=== PATIENT | female | born 1955 | race Caucasian/White ===

== ENCOUNTER 2017-01-23 22:10 | Emergency (ER) | payer OTHER ==
[~2017-01-23] VITALS: Ht 167.6 cm; Wt 49.6 kg
[2017-01-23 22:17] VITALS: BP 170/72; PULSE 85; RESP 16; TEMP 97.5; O2SAT 99
[2017-01-23] MEDS ORDERED: ASPIRIN 81 MG CHEW TAB PO ONE (22:45)
[2017-01-23] MEDS ORDERED: SODIUM CHLORIDE 0.9% FLUSH 10 ML FLUSH IVF PRN (22:45)
--- NOTE | 2017-01-23 23:15 | RADRPT ---
EXAM DATE/TIME: 01/23/2017 22:59 [facility] COMPARISON: No previous studies available for comparison. INDICATIONS : Chest pain. MEDICAL HISTORY : None. SURGICAL HISTORY : None. ENCOUNTER: Initial ACUITY: 1 day PAIN SCORE: 3/10 LOCATION: Bilateral chest FINDINGS: A single view of the chest demonstrates the lungs to be symmetrically aerated without evidence of mas s, infiltrate or effusion. The cardiomediastinal contours are unremarkable. Osseous structures are intact. CONCLUSION: No acute disease. Velasquez Madsen MD on January 23, 2017 at 23:13 Board Certified Radiologist. This report was verified electronically.
[2017-01-23] MEDS ORDERED: LATA0.002 EACH EYE (23:22)
[2017-01-23 23:35] VITALS: RESP 18; O2SAT 99
--- NOTE | 2017-01-23 23:41 | PD ---
HPI Chief Complaint: Hypertension Time Seen by Provider: 22:40 Travel History International Travel<30 days: No Contact w/Intl Traveler<30days: No Traveled to known affect area: No History of Present Illness HPI 62-year-old female with history of MTHFR gene mutation, glaucoma, here for evaluation of elevated blood pressure, tachycardia, lightheadedness, feeling slightly anxious after taking her vitamins today. Patient reports having felt slight pressure in her chest during this episode as well. Currently she is chest pain-free. She denies fevers or recent illness. She does feel a fullness in her anterior neck and believe she may have an issue with her thyroid. PFSH Past Medical History Diminished Hearing: No Tetanus Vaccination: Unknown Influenza Vaccination: No Menopausal: Yes Past Surgical History Genitourinary Surgery: Yes (POLYP REMOVED ON BLADDER) Other Surgery: Yes (LUNG, THORACIC NERVE COMPRESSION SURGERY) Social History Alcohol Use: No Tobacco Use: No Substance Use: No Allergies-Medications (Allergen,Severity, Reaction): Coded Allergies: Iodinated Contrast- Oral and IV Dye (Verified Allergy, Severe, 01/23/17) cephalexin (Verified Allergy, Severe, Hives, 01/23/17) Reported Meds & Prescriptions Reported Meds & Active Scripts Active Reported Latanoprost Opth Drops (Latanoprost) 0.005% Drops 1 Drop EACH EYE HS Refrigerate until opened. Review of Systems Except as stated in HPI: all other systems reviewed are Neg Physical Exam Narrative GENERAL: Well-developed, thin, awake, alert, comfortable, no apparent distress. SKIN: Focused skin assessment warm/dry. No rash. HEAD: Atraumatic. Normocephalic. EYES: Pupils equal and round. No scleral icterus. No injection or drainage. ENT: No nasal bleeding or discharge. Mucous membranes pink and moist. NECK: Trachea midline. No JVD. Slight fullness/possibly enlarged thyroid without palpable nodules. CARDIOVASCULAR: Regular rate and rhythm. RESPIRATORY: No accessory muscle use. Clear to auscultation. Breath sounds equal bilaterally. GASTROINTESTINAL: Abdomen soft, non-tender, nondistended. MUSCULOSKELETAL: No obvious deformities. No clubbing. No cyanosis. No edema. NEUROLOGICAL: Awake and alert. No obvious cranial nerve deficits. Motor grossly within normal limits. Normal speech. PSYCHIATRIC: Appropriate mood and affect; insight and judgment normal. Data Data Last Documented VS Vital Signs Date Time Temp Pulse Resp B/P (MAP) Pulse Ox O2 Delivery O2 Flow Rate FiO2 01/24/17 02:13 86 18 117/60 (79) 99 Room Air 01/23/17:17 97.5 Orders Orders Electrocardiogram (01/23/17 22:45) Ckmb (Isoenzyme) Profile (01/23/17 22:45) Complete Blood Count With Diff (01/23/17 22:45) Comprehensive Metabolic Panel (01/23/17 22:45) Magnesium (Mg) (01/23/17 22:45) Prothrombin Time / Inr (Pt) (01/23/17 22:45) Act Partial Throm Time (Ptt) (01/23/17 22:45) Troponin I (01/23/17 22:45) Chest, Single Ap (01/23/17 22:45) Ecg Monitoring (01/23/17 22:45) Iv Access Insert/Monitor (01/23/17 22:45) Oximetry (01/23/17 22:45) Aspirin Chew (Aspirin Chew) (01/23/17 22:45) Sodium Chloride 0.9% Flush (Ns Flush) (01/23/17 22:45) Thyroid Stimulating Hormone (01/23/17 22:45) Ct Abd/Pel W/O Iv Contrast (01/24/17 00:51) Troponin I (01/24/17 02:03) Labs Laboratory Tests Test 01/23/17 23:30 01/24/17 02:00 White Blood Count 4.5 TH/MM3 Red Blood Count 4.69 MIL/MM3 Hemoglobin 13.7 GM/DL Hematocrit 41.4 % Mean Corpuscular Volume 88.2 FL Mean Corpuscular Hemoglobin 29.1 PG Mean Corpuscular Hemoglobin Concent 33.0 % Red Cell Distribution Width 12.5 % Platelet Count 194 TH/MM3 Mean Platelet Volume 8.7 FL Neutrophils (%) (Auto) 56.9 % Lymphocytes (%) (Auto) 32.2 % Monocytes (%) (Auto) 7.7 % Eosinophils (%) (Auto) 2.1 % Basophils (%) (Auto) 1.1 % Neutrophils # (Auto) 2.6 TH/MM3 Lymphocytes # (Auto) 1.5 TH/MM3 Monocytes # (Auto) 0.3 TH/MM3 Eosinophils # (Auto) 0.1 TH/MM3 Basophils # (Auto) 0.0 TH/MM3 CBC Comment DIFF FINAL Differential Comment Prothrombin Time 10.4 SEC Prothromb Time International Ratio 0.9 RATIO Activated Partial Thromboplast Time 27.1 SEC Blood Urea Nitrogen 14 MG/DL Creatinine 0.54 MG/DL Random Glucose 108 MG/DL Total Protein 7.5 GM/DL Albumin 4.1 GM/DL Calcium Level 9.2 MG/DL Magnesium Level 2.4 MG/DL Alkaline Phosphatase 142 U/L Aspartate Amino Transf (AST/SGOT) 19 U/L Alanine Aminotransferase (ALT/SGPT) 26 U/L Total Bilirubin 1.0 MG/DL Sodium Level 137 MEQ/L Potassium Level 3.7 MEQ/L Chloride Level 102 MEQ/L Carbon Dioxide Level 30.0 MEQ/L Anion Gap 5 MEQ/L Estimat Glomerular Filtration Rate 114 ML/MIN Total Creatine Kinase 56 U/L Troponin I LESS THAN 0.02 NG/ML LESS THAN 0.02 NG/ML Thyroid Stimulating Hormone 3rd Gen 6.350 uIU/ML MDM Medical Decision Making Medical Screen Exam Complete: Yes Emergency Medical Condition: Yes Interpretation(s) EKG: Sinus, rate 81, leftward axis, incomplete RBBB, no acute ischemic abnormality. Differential Diagnosis ACS, pneumothorax, peritonitis, PE, pneumonia, anemia, metabolic abnormality, hyperthyroidism, anxiety Narrative Course Initial vital signs show heart rate 85, blood pressure 170/72, pulse ox 99% on room air, oral temp of 97.5F. Repeat blood pressure is 139/64. CBC is unremarkable. CMP is unremarkable. Cardiac enzymes are negative. TSH is 6.35. Chest x-ray shows no acute disease. The patient was given a dose of aspirin. On reassessment she is complaining of some epigastric discomfort. She is concerned about a possible aneurysm and was told that she had a bruit in the past. She does have tenderness in the epigastric and umbilical region. I will order a CT of her abdomen and pelvis. She tells me that the discomfort she was having in her chest earlier was more like palpitations and this occurs frequently, more frequently over the past month. Delta troponin will be performed. CT abdomen pelvis: CONCLUSION: 1. Several punctate nonobstructing right-sided renal calculi. 2. Gaseous distention of multiple bowel loops without obstruction. 3. Mild distention of the urinary bladder. 4. Minimal loss of height along the superior endplate of L3 and L4. Repeat troponin 3 hours after the first is also negative. Patient was made aware of all findings and is resting comfortably. I do not believe her symptoms are from acute coronary syndrome. She describes more palpitations, and I believe this is more likely due to anxiety. At this point I believe she is stable for discharge home with further workup as an outpatient. She was informed on when to return to the emergency department. She verbalizes understanding and agreement with plan. Diagnosis Primary Impression: Elevated blood pressure reading Additional Impression: Palpitations Referrals: Primary Care Physician 3 days Additional Instructions: Follow-up with a primary care physician this week. Return to the emergency department for worsening symptoms or any other concerns. Disposition: 01 DISCHARGE HOME Condition: Stable Julian Valerio MD Jan 23, 2017 23:41
[2017-01-23 23:47] LABS: AUTOMATED NEUTROPHIL # 2.6 TH/MM3 (1.8-7.7); BASOPHIL % 1.1 % (0.0-2.0); EOSINOPHIL # 0.1 TH/MM3 (0-0.4); EOSINOPHIL % 2.1 % (0.0-4.0); HEMATOCRIT 41.4 % (35.0-46.0); HEMOGLOBIN 13.7 GM/DL (11.6-15.3); LYMPH % 32.2 % (9.0-44.0); LYMPHOCYTE # 1.5 TH/MM3 (1.0-4.8); MEAN CELL VOLUME 88.2 FL (80.0-100.0); MEAN CORPUSCULAR HEMOGLOBIN 29.1 PG (27.0-34.0); MEAN PLATELET VOLUME 8.7 FL (7.0-11.0); MONO % 7.7 % (0.0-8.0); MONOCYTE # 0.3 TH/MM3 (0-0.9); NEUT % 56.9 % (16.0-70.0); PLATELET COUNT 194 TH/MM3 (150-450); RED BLOOD COUNT 4.69 MIL/MM3 (4.00-5.30); RED CELL DISTRIBUTION WIDTH 12.5 % (11.6-17.2); WHITE BLOOD COUNT 4.5 TH/MM3 (4.0-11.0)
[2017-01-23 23:57] VITALS: BP 139/64; PULSE 88; RESP 18; O2SAT 99
[2017-01-24 00:11] LABS: CHLORIDE 102 MEQ/L (98-107); SODIUM (NA) 137 MEQ/L (136-145)
[2017-01-24 00:15] LABS: ALBUMIN 4.1 GM/DL (3.4-5.0); BLOOD UREA NITROGEN 14 MG/DL (7-18); CALCIUM 9.2 MG/DL (8.5-10.1); GLUCOSE,RANDOM 108 MG/DL (74-106); MAGNESIUM 2.4 MG/DL (1.5-2.5)
[2017-01-24 00:17] LABS: INTERNATIONAL NORMALIZED RATIO 0.9 RATIO; PROTHROMBIN TIME - PATIENT 10.4 SEC (9.8-11.6)
[2017-01-24 00:18] LABS: ALT (GPT) 26 U/L (10-53); AST (GOT) 19 U/L (15-37)
[2017-01-24 00:19] LABS: CREATININE 0.54 MG/DL (0.50-1.00); GLOMERULAR FILTRATION RATE 114 ML/MIN (>89)
[2017-01-24 00:20] LABS: TOTAL PROTEIN 7.5 GM/DL (6.4-8.2)
[2017-01-24 00:21] LABS: ALKALINE PHOSPHATASE 142 U/L (45-117)
[2017-01-24 00:24] LABS: TROPONIN I LESS THAN 0.02 NG/ML (0.02-0.05)
--- NOTE | 2017-01-24 01:19 | RADRPT ---
EXAM DATE/TIME: 01/24/2017 00:57 [facility] COMPARISON: No previous studies available for comparison. INDICATIONS : Epigastric pain. Hypertension. ORAL CONTRAST: No oral contrast ingested. RADIATION DOSE: 4.8 CTDIvol (mGy) MEDICAL HISTORY : None SURGICAL HISTORY : None. ENCOUNTER: Initial ACUITY: 1 day PAIN SCALE: 4/10 LOCATION: upper quadrant midline TECHNIQUE: Volumetric scanning of the abdomen and pelvis was performed. Using automated exposure control and ad justment of the mA and/or kV according to patient size, radiation dose was kept as low as reasonably achievable to obtain optimal diagnostic quality images. DICOM format image data is available electro nically for review and comparison. FINDINGS: LOWER LUNGS: The visualized lower lungs are clear. LIVER: Homogeneous density without lesion. There is no dilation of the biliary tree. No calcified gallston es. SPLEEN: Normal size without lesion. PANCREAS: Within normal limits. KIDNEYS: Normal in size and shape. There is no mass, stone, or hydronephrosis on the left. Several punctate n onobstructing right-sided renal calculi measuring 2-3 mm. ADRENAL GLANDS: Within normal limits. VASCULAR: There is no aortic aneurysm. BOWEL/MESENTERY: The stomach, small bowel, and colon demonstrate no acute abnormality. There is no free intraperitone al air or fluid. ABDOMINAL WALL: Within normal limits. RETROPERITONEUM: There is no lymphadenopathy. BLADDER: Mildly distended. No wall thickening or mass. REPRODUCTIVE: Within normal limits. INGUINAL: There is no lymphadenopathy or hernia. MUSCULOSKELETAL: Minimal loss of height along the superior endplate of L3 and L4. CONCLUSION: 1. Several punctate nonobstructing right-sided renal calculi. 2. Gaseous distention of multiple bowel loops without obstruction. 3. Mild distention of the urinary bladder. 4. Minimal loss of height along the superior endplate of L3 and L4. Velasquez Madsen MD on January 24, 2017 at 1:15 Board Certified Radiologist. This report was verified electronically.
[2017-01-24 02:13] VITALS: BP 117/60; PULSE 86; RESP 18; O2SAT 99
[2017-01-24 03:18] VITALS: BP 121/60
--- NOTE | 2017-01-24 14:56 | EKG ---
Date Performed: 01/23/2017 Time Performed: 22:55:45 PTAGE: 62 years EKG: Sinus rhythm POSSIBLE LEFT ATRIAL ENLARGEMENT BORDERLINE LEFT AXIS DEVIATION INCOMPLETE RIGHT BUNDLE BRANCH BLOCK BORDERLINE ECG NO PREVIOUS TRACING DOCTOR: Daniel Rangel Interpretating Date/Time 01/24/2017 14:53:41
[2017-02-05] MEDS ORDERED: ASPI81CH37 CHEW (16:42)
== END 2017-01-24 03:20 | disposition home or self-care (01) ==
LOC: PHED 22:10
DX: R03.0 Elevated blood-pressure reading, without diagnosis of hypertension (principal); R00.2 Palpitations; R42 Dizziness and giddiness; R07.89 Other chest pain; F41.9 Anxiety disorder, unspecified; R94.31 Abnormal electrocardiogram [ECG] [EKG]; Z79.899 Other long term (current) drug therapy
CPT/HCPCS: 71010; 74176; 80053; 82550; 83735; 84443; 84484; 85025; 85610; 85730; 93005

== ENCOUNTER 2017-02-05 16:26 | Observation (INO) | payer OTHER ==
[~2017-02-05] VITALS: Ht 170.2 cm; Wt 49.8 kg
[~2017-02-05 16:26] MED LIST: LATA0.002 EACH EYE
[2017-02-05 16:32] VITALS: BP 152/81; PULSE 109; RESP 18; TEMP 97.9; O2SAT 99
[2017-02-05] MEDS ORDERED: ASPI81CH6 CHEW (16:42)
[2017-02-05] MEDS ORDERED: MAGN250T11 PO (16:42)
[2017-02-05 16:55] VITALS: BP 121/63; PULSE 92; O2SAT 98
--- NOTE | 2017-02-05 16:57 | PD ---
HPI Chief Complaint: Chest Pain Time Seen by Provider: 16:40 Travel History International Travel<30 days: No Contact w/Intl Traveler<30days: No Traveled to known affect area: No History of Present Illness HPI The patient was seen and examined in the presence of the nurse. This patient complains of chest pain. He has a central sternal pain and pressure. It feels like a rubber band around her entire chest. Also having it radiates through to the back. No injury. Denies cough or shortness of breath or fever. She says it is worse when she takes of breath. Duration is 4-5 hours. Severity is moderate. No alleviating factors. Symptoms are nonexertional. No history of cardiac or pulmonary disease. Never had blood clot. PFSH Past Medical History Diminished Hearing: No Thyroid Disease: Yes Influenza Vaccination: No ?: Not Menopausal: Yes Past Surgical History Genitourinary Surgery: Yes (POLYP REMOVED ON BLADDER) Other Surgery: Yes (LUNG, THORACIC NERVE COMPRESSION SURGERY) Social History Alcohol Use: No Tobacco Use: No Substance Use: No Allergies-Medications (Allergen,Severity, Reaction): Coded Allergies: Iodinated Contrast- Oral and IV Dye (Verified Allergy, Severe, 02/05/17) cephalexin (Verified Allergy, Severe, Hives, 02/05/17) Reported Meds & Prescriptions Reported Meds & Active Scripts Active Reported Aspirin Low Dose (Aspirin) 81 Mg Chew 325 Mg CHEW DAILY Magnesium Oxide 250 Mg Tab 250 Mg PO DAILY Latanoprost Opth Drops (Latanoprost) 0.005% Drops 1 Drop EACH EYE HS Refrigerate until opened. Review of Systems General / Constitutional: No: Fever Eyes: No: Visual changes HENT: No: Headaches Cardiovascular: Positive: Chest Pain or Discomfort Respiratory: No: Shortness of Breath Gastrointestinal: No: Abdominal Pain Genitourinary: No: Dysuria Musculoskeletal: No: Pain Skin: No Rash Neurologic: No: Weakness Psychiatric: No: Depression Endocrine: No: Polydipsia Hematologic/Lymphatic: No: Easy Bruising Physical Exam Narrative GENERAL: Thin well-developed patient in no apparent distress. SKIN: Focused skin assessment reveals no rash and nodules. Skin is Warm and dry. HEAD: Atraumatic. Normocephalic. EYES: Pupils equal and round. No scleral icterus. No injection or drainage. ENT: No nasal bleeding or discharge. Mucous membranes pink and moist. NECK: Trachea midline. No JVD. CARDIOVASCULAR: Regular rate and rhythm. No murmur appreciated. RESPIRATORY: No accessory muscle use. Clear to auscultation. Breath sounds equal bilaterally. GASTROINTESTINAL: Abdomen soft, non-tender, nondistended. Hepatic and splenic margins not palpable. MUSCULOSKELETAL: No obvious deformities. No clubbing. No cyanosis. No edema. No sternal tenderness NEUROLOGICAL: Awake and alert. No obvious cranial nerve deficits. Motor grossly within normal limits. Normal speech. PSYCHIATRIC: Anxious mood and affect; insight and judgment normal. Data Data Last Documented VS Vital Signs Date Time Temp Pulse Resp B/P (MAP) Pulse Ox O2 Delivery O2 Flow Rate FiO2 02/05/17 16:55 92 121/63 (82) 98 Room Air 02/05/17 16:32 97.9 18 Orders Orders Electrocardiogram (02/05/17 16:48) Basic Metabolic Panel (Bmp) (02/05/17 16:48) Ckmb (Isoenzyme) Profile (02/05/17 16:48) Complete Blood Count With Diff (02/05/17 16:48) Magnesium (Mg) (02/05/17 16:48) Prothrombin Time / Inr (Pt) (02/05/17 16:48) Act Partial Throm Time (Ptt) (02/05/17 16:48) Troponin I (02/05/17 16:48) Chest, Single Ap (02/05/17 16:48) Ecg Monitoring (02/05/17 16:48) Iv Access Insert/Monitor (02/05/17 16:48) Oximetry (02/05/17 16:48) Aspirin (Aspirin) (02/05/17 17:00) Sodium Chloride 0.9% Flush (Ns Flush) (02/05/17 17:00) D-Dimer (02/05/17 16:48) Labs Laboratory Tests Test 02/05/17 16:44 White Blood Count 7.9 TH/MM3 Red Blood Count 4.97 MIL/MM3 Hemoglobin 14.7 GM/DL Hematocrit 43.0 % Mean Corpuscular Volume 86.4 FL Mean Corpuscular Hemoglobin 29.5 PG Mean Corpuscular Hemoglobin Concent 34.2 % Red Cell Distribution Width 12.1 % Platelet Count 246 TH/MM3 Mean Platelet Volume 9.0 FL Neutrophils (%) (Auto) 79.2 % Lymphocytes (%) (Auto) 15.0 % Monocytes (%) (Auto) 3.8 % Eosinophils (%) (Auto) 0.4 % Basophils (%) (Auto) 1.6 % Neutrophils # (Auto) 6.3 TH/MM3 Lymphocytes # (Auto) 1.2 TH/MM3 Monocytes # (Auto) 0.3 TH/MM3 Eosinophils # (Auto) 0.0 TH/MM3 Basophils # (Auto) 0.1 TH/MM3 CBC Comment DIFF FINAL Differential Comment Prothrombin Time 10.5 SEC Prothromb Time International Ratio 1.0 RATIO Activated Partial Thromboplast Time 26.4 SEC D-Dimer Quantitative (PE/DVT) 0.26 MG/L FEU Blood Urea Nitrogen 15 MG/DL Creatinine 0.58 MG/DL Random Glucose 143 MG/DL Calcium Level 9.1 MG/DL Magnesium Level 2.3 MG/DL Sodium Level 135 MEQ/L Potassium Level 3.7 MEQ/L Chloride Level 101 MEQ/L Carbon Dioxide Level 27.4 MEQ/L Anion Gap 7 MEQ/L Estimat Glomerular Filtration Rate 105 ML/MIN Total Creatine Kinase 75 U/L Troponin I LESS THAN 0.02 NG/ML MDM Medical Decision Making Medical Screen Exam Complete: Yes Emergency Medical Condition: Yes Medical Record Reviewed: Yes Differential Diagnosis Differential diagnosis includes LA, angina, pericarditis, pleurisy, GERD, anxiety. Narrative Course I have reviewed the patient's electronic medical record. IV placed I reviewed the EKG which shows sinus rhythm but no acute ST elevation I reviewed the chest x-ray which is normal Extended cardiac monitoring shows sinus rhythm without ectopy CBC is normal Metabolic profile is normal CK is normal Troponin is normal Coagulation studies are normal She took 4 baby aspirin prior to arrival D-dimer is 0.26, ruling out PE in this low risk patient This patient be a 23 hour observation in the chest pain center to rule out cardiac cause of her symptoms. I placed a call to the hospitalist to discuss. Diagnosis Primary Impression: Chest pain in adult Admitting Information Admitting Physician Requests: Observation Jeff Peguero MD Feb 05, 2017 16:57
[2017-02-05] MEDS ORDERED: ASPIRIN 325 MG TAB PO ONE (17:00)
[2017-02-05] MEDS ORDERED: SODIUM CHLORIDE 0.9% FLUSH 10 ML FLUSH IVF PRN (17:00)
[2017-02-05 17:05] LABS: AUTOMATED NEUTROPHIL # 6.3 TH/MM3 (1.8-7.7); BASOPHIL # 0.1 TH/MM3 (0-0.2); BASOPHIL % 1.6 % (0.0-2.0); EOSINOPHIL % 0.4 % (0.0-4.0); LYMPHOCYTE # 1.2 TH/MM3 (1.0-4.8); MEAN CELL VOLUME 86.4 FL (80.0-100.0); MEAN CORPUSCULAR HEMOGLOBIN 29.5 PG (27.0-34.0); MEAN CORPUSCULAR HGB CONC 34.2 % (32.0-36.0); MONO % 3.8 % (0.0-8.0); NEUT % 79.2 % (16.0-70.0); PLATELET COUNT 246 TH/MM3 (150-450); RED BLOOD COUNT 4.97 MIL/MM3 (4.00-5.30); RED CELL DISTRIBUTION WIDTH 12.1 % (11.6-17.2); WHITE BLOOD COUNT 7.9 TH/MM3 (4.0-11.0)
[2017-02-05 17:08] LABS: HEMO FLAGS DIFF FINAL
[2017-02-05 17:09] LABS: CHLORIDE 101 MEQ/L (98-107); POTASSIUM 3.7 MEQ/L (3.5-5.1); SODIUM (NA) 135 MEQ/L (136-145)
[2017-02-05 17:12] LABS: ANION GAP 7 MEQ/L (5-15); BICARBONATE 27.4 MEQ/L (21.0-32.0); BLOOD UREA NITROGEN 15 MG/DL (7-18); MAGNESIUM 2.3 MG/DL (1.5-2.5)
[2017-02-05 17:15] LABS: GLOMERULAR FILTRATION RATE 105 ML/MIN (>89)
--- NOTE | 2017-02-05 17:15 | RADRPT ---
EXAM DATE/TIME: 02/05/2017 17:02 [facility] COMPARISON: CHEST SINGLE AP, January 23, 2017, 22:59. INDICATIONS : Chest pain MEDICAL HISTORY : None. SURGICAL HISTORY : Spinal ENCOUNTER: Initial ACUITY: 1 day PAIN SCORE: 8/10 LOCATION: Bilateral chest FINDINGS: Hyperinflation. Heart size normal. Lungs are clear. Osseous structures are intact. CONCLUSION: No acute disease. Laz Macias MD on February 05, 2017 at 17:12 Board Certified Radiologist. This report was verified electronically.
[2017-02-05 17:20] LABS: APTT (PATIENT) 26.4 SEC (24.3-30.1); CREATINE KINASE 75 U/L (26-192); PROTHROMBIN TIME - PATIENT 10.5 SEC (9.8-11.6)
[2017-02-05 18:14] VITALS: BP 150/65; PULSE 75; RESP 18; O2SAT 98
[2017-02-05] MEDS ORDERED: NITROGLYCERIN 0.4 MG SL 25 TABS/BTL SL PRN (18:45)
[2017-02-05] MEDS ORDERED: ACETAMINOPHEN 500 MG CPLT PO PRN (18:45)
[2017-02-05] MEDS ORDERED: ONDANSETRON HCL 4 MG/2 ML VIAL IV PUSH PRN (18:45)
[2017-02-05] MEDS ORDERED: SODIUM CHLORIDE 0.9% FLUSH 10 ML FLUSH IV FLUSH PRN (18:45)
[2017-02-05] MEDS ORDERED: ACETAMINOPHEN/HYDROcodone 325 MG/7.5 MG TAB PO PRN (18:45)
[2017-02-05] MEDS ORDERED: MORPHINE SULFATE 2 MG/ML INJ IV PUSH PRN (19:15)
[2017-02-05 20:00] VITALS: PULSE 85
[2017-02-05] MEDS: SODIUM CHLORIDE 0.9% FLUSH 10 ML FLUSH IV FLUSH SCH (21:00)
[2017-02-05] MEDS ORDERED: LATANOPROST 0.005% OPHT SOLN 2.5 ML BTL EACH EYE SCH (21:00)
--- NOTE | 2017-02-05 21:08 | EKG ---
Date Performed: 02/05/2017 Time Performed: 20:16:50 PTAGE: 62 years EKG: Sinus rhythm BORDERLINE LEFT AXIS DEVIATION INCOMPLETE RIGHT BUNDLE BRANCH BLOCK BORDERLINE ECG PREVIOUS TRACING : 01/23/2017 22.55 No significant change from previous tracing noted. DOCTOR: Jesse Ayala Interpretating Date/Time 02/05/2017 21:06:05
--- NOTE | 2017-02-05 21:10 | EKG ---
Date Performed: 02/05/2017 Time Performed: 16:37:08 PTAGE: 62 years EKG: SINUS TACHYCARDIA WITH SHORT NV INTERVAL LEFT AXIS DEVIATION INCOMPLETE RIGHT BUNDLE BRANCH BLOCK ABNORMAL ECG NO PREVIOUS TRACING DOCTOR: Jesse Ayala Interpretating Date/Time 02/05/2017 21:10:19
[2017-02-05 21:15] VITALS: BP 117/54; PULSE 82; RESP 20; TEMP 97.4; O2SAT 99
[2017-02-05 22:15] VITALS: O2SAT 96
[2017-02-05 22:31] LABS: CREATINE KINASE 55 U/L (26-192)
[2017-02-05 23:34] LABS: CREATINE KINASE 53 U/L (26-192)
[2017-02-06 00:35] VITALS: BP 105/52; PULSE 78; RESP 19; TEMP 98.6; O2SAT 98
--- NOTE | 2017-02-06 07:14 | EKG ---
Date Performed: 02/05/2017 Time Performed: 22:26:18 PTAGE: 62 years EKG: Sinus rhythm LEFT AXIS DEVIATION INCOMPLETE RIGHT BUNDLE BRANCH BLOCK ABNORMAL ECG PREVIOUS TRACING : 02/05/2017 20.16 No significant change from previous tracing noted. DOCTOR: Jesse Ayala Interpretating Date/Time 02/06/2017 07:14:46
[2017-02-06 08:00] VITALS: BP 97/61; PULSE 68; RESP 16; TEMP 97.3; O2SAT 100
[2017-02-06 08:05] VITALS: PULSE 83
--- NOTE | 2017-02-06 08:43 | HHI.HP ---
[facility] Primary Care Physician No Primary Care Physician Admission Diagnosis Chest pain Diagnoses: (1) Chest pain in adult (2) Palpitations Chief Complaint: Chest pain Travel History International Travel<30 Days: No Contact w/Intl Traveler <30 Da: No Traveled to Known Affected Are: No History of Present Illness Ms. Scott is a 62-year-old female patient with a known medical history of thyroid disease who presented to the ED with complaints of chest pain. Patient states that she was getting ready to go to lunch yesterday around noon and noticed a sharp pain in her left shoulder blade and over several minutes the pain radiated to her midsternal chest area and worsened. Patient characterized the pain as a sharp pain initially and then felt like a tight squeezing sensation. She states that deep breathing and activity made the pain worse. Pain lasted roughly 3 hours and once given 4 baby aspirin the pain subsided. Denies ever having this pain before. Denies any recent illness including fever, cough. shortness of breath, abdominal pain, n/v/d or dysuria. Patient does state she has had hypothyroidism for over 25 years now and has had a difficult time in managing her symptoms and controlling her TSH levels. Her symptoms fluctuate betweens hyper and hypo thyroid complaints. She states she thinks these symptoms are due to her thyroid. Has seen an media production support manager in the outpatient setting who has not been able to stabilize her TSH levels. At this time patient quit taking her medication three weeks ago. Did have a stress test 8 years ago which was reportedly unremarkable. Does not follow with a production support analyst. Review of Systems Constitutional: COMPLAINS OF: Chills, DENIES: Fever Endocrine: COMPLAINS OF: Heat/cold intolerance Eyes: DENIES: Blurred vision, Eye pain, Vision loss Ears, nose, mouth, throat: COMPLAINS OF: Throat pain, DENIES: Ear Pain Respiratory: DENIES: Cough, Shortness of breath Cardiovascular: COMPLAINS OF: Chest pain, Palpitations, DENIES: Syncope, Lower Extremity Edema Gastrointestinal: DENIES: Abdominal pain, Bloody stools, Constipation, Diarrhea , Nausea, Vomiting Musculoskeletal: COMPLAINS OF: Joint pain (right and left shoulder) Psychiatric: COMPLAINS OF: Anxiety Except as stated in HPI: all other systems reviewed are Neg Past Family Social History Past Medical History Thyroid disease Vertigo Past Surgical History Bladder polyp removal Thoracic nerve compression Reported Medications Active Reported Aspirin Low Dose (Aspirin) 81 Mg Chew 325 Mg CHEW DAILY Magnesium Oxide 250 Mg Tab 250 Mg PO DAILY Latanoprost Opth Drops (Latanoprost) 0.005% Drops 1 Drop EACH EYE HS Refrigerate until opened. Allergies: Coded Allergies: Iodinated Contrast- Oral and IV Dye (Verified Allergy, Severe, 02/05/17) cephalexin (Verified Allergy, Severe, Hives, 02/05/17) Active Ordered Medications Current Medications Medications (Trade) Dose Ordered Sig/Ej Route Start Time Stop Time Status Last Admin (NS Flush) 2 ml UNSCH PRN IV FLUSH 02/05/17 18:45 (NS Flush) 2 ml BID IV FLUSH 02/05/17 21:00 02/05/17 21:00 (Tylenol) 500 mg Q4H PRN PO 02/05/17 18:45 ([place] 7.5-325 Mg) 1 tab Q4H PRN PO 02/05/17 18:45 (Morphine Inj) 2 mg Q4H PRN IV PUSH 02/05/17 19:15 (Zofran Inj) 4 mg Q6H PRN IV PUSH 02/05/17 18:45 (Nitrostat Sl) 0.4 mg Q5M PRN SL 02/05/17 18:45 (Aspirin) 325 mg DAILY PO 02/06/17 09:00 (Xalatan 0.005% Opth Soln) 1 drop HS EACH EYE 02/05/17 21:00 02/05/17 21:00 (Mag-Ox) 200 mg DAILY PO 02/06/17 09:00 Family History Father had KS x3 and at the age of 6767 years old. Mother of lung cancer in her 70's. Social History Denies any current or past tobacco use. Denies any alcohol use. Denies any illicit drug use. Physical Exam Vital Signs Vital Signs Date Time Temp Pulse Resp B/P (MAP) Pulse Ox O2 Delivery O2 Flow Rate FiO2 02/06/17 00:35 98.6 78 19 105/52 (69) 98 02/05/17 22:15 96 21 02/05/17 21:15 97.4 82 20 117/54 (75) 99 02/05/17 20:00 85 02/05/17 18:46 02/05/17 18:14 75 18 150/65 (93) 98 Room Air 02/05/17 17:52 97 Room Air 02/05/17 16:55 92 121/63 (82) 98 Room Air 02/05/17 16:37 101 99 Room Air 02/05/17 16:32 97.9 109 18 152/81 (104) 99 Physical Exam GENERAL: This is a well-developed, thin female patient, lying in bed in no apparent distress. SKIN: No rashes, ecchymoses or lesions. Warm and dry. HEAD: Atraumatic. Normocephalic. Pupils equal round and reactive. Extraocular motions intact. No scleral icterus. No injection or drainage. Nose without bleeding. Throat without erythema, tonsillar hypertrophy or exudate. Uvula midline. Airway patent. NECK: Trachea midline. No JVD. Supple. Mild right lymphadenopathy CARDIOVASCULAR: Regular rate and rhythm without murmurs, gallops, or rubs. Slight aortic bruit. RESPIRATORY: Clear to auscultation. Breath sounds equal bilaterally. No wheezes , rales, or rhonchi. GASTROINTESTINAL: Abdomen soft, non-tender, nondistended. No guarding. Active bs x 4 q. MUSCULOSKELETAL: Extremities without clubbing, cyanosis, or edema. No joint tenderness, effusion, or edema noted. NEUROLOGICAL: Awake and alert. Cranial nerves II through XII intact. Motor and sensory grossly within normal limits. Five out of 5 muscle strength in all muscle groups. Normal speech. Laboratory Laboratory Tests Test 02/05/17 16:44 02/05/17 20:12 02/05/17 22:30 White Blood Count 7.9 Red Blood Count 4.97 Hemoglobin 14.7 Hematocrit 43.0 Mean Corpuscular Volume 86.4 Mean Corpuscular Hemoglobin 29.5 Mean Corpuscular Hemoglobin Concent 34.2 Red Cell Distribution Width 12.1 Platelet Count 246 Mean Platelet Volume 9.0 Neutrophils (%) (Auto) 79.2 Lymphocytes (%) (Auto) 15.0 Monocytes (%) (Auto) 3.8 Eosinophils (%) (Auto) 0.4 Basophils (%) (Auto) 1.6 Neutrophils # (Auto) 6.3 Lymphocytes # (Auto) 1.2 Monocytes # (Auto) 0.3 Eosinophils # (Auto) 0.0 Basophils # (Auto) 0.1 CBC Comment DIFF FINAL Differential Comment Prothrombin Time 10.5 Prothromb Time International Ratio 1.0 Activated Partial Thromboplast Time 26.4 D-Dimer Quantitative (PE/DVT) 0.26 Blood Urea Nitrogen 15 Creatinine 0.58 Random Glucose 143 Calcium Level 9.1 Magnesium Level 2.3 Sodium Level 135 Potassium Level 3.7 Chloride Level 101 Carbon Dioxide Level 27.4 Anion Gap 7 Estimat Glomerular Filtration Rate 105 Total Creatine Kinase 75 55 53 Troponin I LESS THAN 0.02 LESS THAN 0.02 LESS THAN 0.02 Result Diagram: 02/05/17164302/05/171643 Imaging Last Impressions Chest X-Ray 02/05/171647 Signed Impressions: Service Date/Time: Sunday, February 05, 2017 17:02 - CONCLUSION: No acute disease. Laz Macias MD [place] VTE Risk Assessment Caprini VTE Risk Assessment: Mod/High Risk (score >= 2) Caprini Risk Assessment Model Point Value = 1 Point Value = 2 Point Value = 3 Point Value = 5 Age 41-60 Minor surgery BMI > 25 kg/m2 Swollen legs Varicose veins or History of unexplained or recurrent spontaneous Oral contraceptives or hormone replacement Sepsis (< 1 month) Serious lung disease, including pneumonia (< 1 month) Abnormal pulmonary function Acute myocardial infarction Congestive heart failure (< 1 month) History of inflammatory bowel disease Medical patient at bed rest Age 61-74 Arthroscopic surgery Major open surgery (> 45 min) Laparoscopic surgery (> 45 min) Malignancy Confined to bed (> 72 hours) Immobilizing plaster cast Central venous access Age >= 75 History of VTE Family history of VTE Factor V Leiden Prothrombin [id number] Lupus anticoagulant Anticardiolipin antibodies Elevated serum homocysteine Heparin-induced thrombocytopenia Other congenital or acquired thrombophilia Stroke (< 1 month) Elective arthroplasty Hip, pelvis, or leg fracture Acute spinal cord injury (< 1 month) Prophylaxis Regimen Total Risk Factor Score Risk Level Prophylaxis Regimen 0-1 Low Early ambulation 2 Moderate Order ONE of the following: *Sequential Compression Device (SCD) *Heparin 5000 units SQ BID 3-4 Higher Order ONE of the following medications: *Heparin 5000 units SQ TID *Enoxaparin/Lovenox 40 mg SQ daily (WT < 150 kg, CrCl > 30 mL/min) *Enoxaparin/Lovenox 30 mg SQ daily (WT < 150 kg, CrCl > 10-29 mL/min) *Enoxaparin/Lovenox 30 mg SQ BID (WT < 150 kg, CrCl > 30 mL/min) AND/OR *Sequential Compression Device (SCD) 5 or more Highest Order ONE of the following medications: *Heparin 5000 units SQ TID (Preferred with Epidurals) *Enoxaparin/Lovenox 40 mg SQ daily (WT < 150 kg, CrCl > 30 mL/min) *Enoxaparin/Lovenox 30 mg SQ daily (WT < 150 kg, CrCl > 10-29 mL/min) *Enoxaparin/Lovenox 30 mg SQ BID (WT < 150 kg, CrCl > 30 mL/min) AND *Sequential Compression Device (SCD) Assessment and Plan Problem List: (1) Chest pain in adult ICD Code: R07.9 - Chest pain, unspecified Status: Acute Plan: Patient has been admitted to the chest pain center. Serial EKGs and serial troponins have been ordered for ruling out purposes. Troponins are flat. EKG reviewed showing NSR HR WNL, no arrhythmias noted, no ST changes to indicate ischemia or infarction, RBBB noted. CXR reviewed showing no acute disease. D-dimer was WNL. CBC and BMP reviewed which were essentially unremarkable. Patient will undergo a treadmill stress test to further rule out any possibilty of ischemia. Will follow with results of stress test and further treatment plan will depend on results. Continue to follow. Supportive care. Control pain. Supplemental O2 to keep sats >92%. Started patient on Aspirin 325 mg PO daily. [place] PO available PRN as needed per pain scale. Morphine IV available PRN per pain scale. Nitro SL available PRN chest pain. Patient denies any further chest pain at this time or overnight. Will continue cardiac telemetry. (2) Thyroid disease ICD Code: E07.9 - Disorder of thyroid, unspecified Plan: Ordered a TSH, free T3 and free T4. Patient states she has not taken her thyroid medication for over 3 weeks now thinking her symptoms have been related to hyperthyroidism. Will continue to monitor. Likely will start her on a low dose levothyroxine and encourage her to follow up with an media production support manager in the outpatient setting for further work up and management of her thyroid disease. Supportive care at this time. Assessment and Plan DVT prophylaxis: SCDs. Discussed Condition With Patient underwent a cardiac treadmill stress test. Images sent to Dr. Pedraza, cardiology project control analyst, who reviewed images and OK to discharge. No signs of ischemia noted. Spoke to patient at length about thyroid disease and inability to find an media production support manager. Encouraged to call around and attempt to obtain appointment. Given prescription. Thyroid labs noted. Patient stable at this time and agreeable to the plan. Maribel Nickerson Feb 06, 2017 08:43
[2017-02-06] MEDS ORDERED: ASPIRIN 325 MG TAB PO SCH (09:00)
[2017-02-06] MEDS ORDERED: MAGNESIUM OXIDE 400 MG TAB PO SCH (09:00)
[2017-02-06] MEDS: SODIUM CHLORIDE 0.9% FLUSH 10 ML FLUSH IV FLUSH SCH (10:31)
[2017-02-06] MEDS ORDERED: ARMO30TA PO (10:58)
[2017-02-06] MEDS ORDERED: NITR0.4S SL (11:11)
--- NOTE | 2017-02-06 11:11 | HHI.DCPOC ---
Discharge Care Plan Diagnosis: (1) Chest pain in adult (2) Thyroid disease Your Health Problems Are: Anxiety Chest Pain Goals to Promote Your Health * To prevent worsening of your condition and complications * To maintain your health at the optimal level Directions to Meet Your Goals Take your medications as prescribed Follow your dietary instruction Follow activity as directed Keep your appointments as scheduled Take your immunizations and boosters as scheduled If your symptoms worsen call your PCP, if no PCP go to Urgent Care Center or Emergency Room Smoking is Dangerous to Your Health. Avoid second hand smoke Call the 24-hour hour crisis hotline for domestic abuse at Maribel Nickerson Feb 06, 2017 11:11
[2017-02-06 12:00] VITALS: BP 111/63; PULSE 82; RESP 16; TEMP 98.1; O2SAT 98
[2017-02-06 13:22] LABS: FREE T3 2.13 PG/ML (2.18-3.98); FREE T4 1.1 NG/DL (0.76-1.46)
--- NOTE | 2017-02-07 16:35 | TR ---
Date Performed: 02/06/2017 Time Performed: 09:10:43 DOCTOR: Tosha Varma DRUG LIST: CLINICAL HISTORY: REASON FOR TEST: REASON FOR ENDING: OBSERVATION: CONCLUSION: Ananth protocol performed and stopped 2/2 reaching target heart rate and leg fatigue. Normal BP response. Fair exercise tolerance. Patient felt palpitations during test, no reproducible chest pain. ST segment upsloping. Recovery quick and unremarkable. Maximum PF=002 Target HR Achieved= 113.0% Maximum NS=323/70 Total Exercise Time=4:01 COMMENTS:
== END 2017-02-06 13:49 | disposition home or self-care (01) ==
LOC: PHED 16:26 → PHEDA 17:59 → PH3B 18:45
PROVIDERS: ADMIT Family Medicine; ATTEND Family Medicine
DX: R07.9 Chest pain, unspecified (principal); E03.9 Hypothyroidism, unspecified; F41.9 Anxiety disorder, unspecified; R00.2 Palpitations; R94.31 Abnormal electrocardiogram [ECG] [EKG]
CPT/HCPCS: 71010; 80048; 82550; 83735; 84439; 84443; 84481; 84484; 85025; 85379; 85610; 85730; 93005; 93017; 99285; G0378